=== PATIENT | male | born 1965 | race African-American/Black ===

== ENCOUNTER 2024-02-19 10:25 | Emergency (ER) | payer OTHER ==
[~2024-02-19] VITALS: Wt 99.8 kg
[2024-02-19 10:49] LABS: BASO % 0.4 % (0.0-1.0); EOS # 0.1 10*3/uL (0.0-0.4); EOS % 1.8 % (1.0-4.0); HEMATOCRIT 40.3 % (42.0-52.0); LYMPH # 0.8 10*3/uL (1.3-4.4); LYMPH % 14.9 % (27.0-41.0); MEAN CELL VOLUME 96.4 fl (80.0-94.0); MEAN CORPUSCULAR HGB 30.4 pg (27.0-31.0); MEAN CORPUSCULAR HGB CONC 31.5 g/dl (33.0-37.0); MEAN PLATELET VOLUME 9.4 fl (9.6-12.3); MONO # 0.5 10*3/uL (0.1-1.0); MONO % 9.1 % (3.0-9.0); NEUT % 73.4 % (47.0-73.0); PLATELET COUNT AUTOMATED 335 10*3/uL (130-400); RED BLOOD COUNT 4.18 10*6/uL (4.50-5.90); RED CELL DISTRI WIDTH 13.7 % (0-14.5); WHITE BLOOD COUNT 5.5 10*3/uL (4.8-10.8)
[2024-02-19] MEDS ORDERED: NORVASC5 MG PO (11:03)
[2024-02-19] MEDS ORDERED: VAZALORE81 MG PO (11:03)
[2024-02-19 11:04] LABS: ACT PARTIAL THROMBO TIME 25.4 SECONDS (20.0-32.1)
[2024-02-19] MEDS ORDERED: LIPITOR80 MG PO (11:04)
[2024-02-19] MEDS ORDERED: BISACODYL10 MG RC (11:04)
[2024-02-19] MEDS ORDERED: LODOCO0.5 MG PO (11:05)
[2024-02-19] MEDS ORDERED: BUMETANIDE1 MG PO (11:05)
[2024-02-19] MEDS ORDERED: COREG12.5 M1 PO (11:05)
[2024-02-19] MEDS ORDERED: NATURE'S BLEND F1 MG PO (11:07)
[2024-02-19] MEDS ORDERED: FLUTICASONE-SA1 EAC3 INH (11:07)
[2024-02-19] MEDS ORDERED: HYDRALAZINE HYD50 MG PO (11:08)
[2024-02-19] MEDS ORDERED: ISOSORBIDE MONO20 MG PO (11:08)
[2024-02-19] MEDS ORDERED: JARDIANCE10 MG PO (11:09)
[2024-02-19 11:10] LABS: ALKALINE PHOSPHATASE 81 U/L (46-116); BUN 24 mg/dl (9-23); CHLORIDE 104 mmol/L (98-107); POTASSIUM 4.4 mmol/L (3.4-5.1); SGPT/ALT 18 U/L (5-49); TOTAL PROTEIN 7.4 gm/dL (6.0-8.0)
[2024-02-19] MEDS ORDERED: MILK OF MA400 MG/53 PO (11:10)
[2024-02-19] MEDS ORDERED: PLAVIX75 M1 PO (11:10)
[2024-02-19] MEDS ORDERED: DAILY VALUE1 EACH PO (11:10)
[2024-02-19] MEDS ORDERED: PROTONIX40 MG PO (11:11)
[2024-02-19] MEDS ORDERED: CAROSPIR25 MG/5 ML PO (11:11)
[2024-02-19] MEDS ORDERED: NATURE'S BLEND100 M2 PO (11:12)
[2024-02-19] MEDS ORDERED: VALSARTAN80 MG PO (11:13)
[2024-02-19] MEDS ORDERED: TYLENOL325 M3 PO (11:13)
[2024-02-19] MEDS ORDERED: MORPHINE Sulfate 2 MG/ML SYR IV ONE (12:20)
[2024-02-19] MEDS ORDERED: ASPIRIN ENTERIC COATED 81 MG TAB PO ONE (12:20)
== END 2024-02-19 15:46 | disposition home or self-care (01) ==
LOC: ED 10:25
PROVIDERS: Internal Medicine
DX: I31.9 Disease of pericardium, unspecified (principal); E11.9 Type 2 diabetes mellitus without complications; J44.9 Chronic obstructive pulmonary disease, unspecified; Z86.73 Personal history of transient ischemic attack (TIA), and cerebral infarction without residual deficits; F41.9 Anxiety disorder, unspecified; Z88.2 Allergy status to sulfonamides; Z88.8 Allergy status to other drugs, medicaments and biological substances

== ENCOUNTER 2024-03-10 19:04 | Emergency (ER) | payer OTHER ==
[~2024-03-10] VITALS: Ht 167.6 cm; Wt 99.4 kg
[~2024-03-10 19:04] MED LIST: BISACODYL10 MG RC; BUMETANIDE1 MG PO; CAROSPIR25 MG/5 ML PO; COREG12.5 M1 PO; DAILY VALUE1 EACH PO; FLUTICASONE-SA1 EAC3 INH; HYDRALAZINE HYD50 MG PO; IMDUR SA30 MG PO; INVEGA3 MG PO; ISOSORBIDE MONO20 MG PO; JARDIANCE10 MG PO; LIPITOR80 MG PO; LODOCO0.5 MG PO; MILK OF MA400 MG/53 PO; NAMENDA-5 PO; NATURE'S BLEND F1 MG PO; NATURE'S BLEND100 M2 PO; NORVASC5 MG PO; PLAVIX75 M1 PO; PROTONIX40 MG PO; RIVASTIGMINE1 EACH T; TYLENOL325 M3 PO; VALSARTAN80 MG PO; VAZALORE81 MG PO
[2024-03-10] MEDS ORDERED: LORazepam 1 MG TAB PO ONE (19:40)
[2024-03-10 19:47] LABS: BASO % 0.2 % (0.0-1.0); EOS % 0.8 % (1.0-4.0); HEMATOCRIT 36.2 % (42.0-52.0); LYMPH # 0.8 10*3/uL (1.3-4.4); LYMPH % 14.8 % (27.0-41.0); MEAN CELL VOLUME 96.3 fl (80.0-94.0); MEAN CORPUSCULAR HGB 30.6 pg (27.0-31.0); MEAN CORPUSCULAR HGB CONC 31.8 g/dl (33.0-37.0); MONO # 0.6 10*3/uL (0.1-1.0); MONO % 10.9 % (3.0-9.0); NEUT # 3.7 10*3/uL (2.3-7.9); NEUT % 72.9 % (47.0-73.0); PLATELET COUNT AUTOMATED 266 10*3/uL (130-400); RED BLOOD COUNT 3.76 10*6/uL (4.50-5.90); RED CELL DISTRI WIDTH 13.2 % (0-14.5); WHITE BLOOD COUNT 5.1 10*3/uL (4.8-10.8)
[2024-03-10 20:02] LABS: POTASSIUM 3.9 mmol/L (3.4-5.1)
[2024-03-10 20:06] LABS: BILIRUBIN Negative (Negative); BLOOD Negative (Negative); CLARITY Clear (Clear); COLOR Yellow (Yellow); GLUCOSE 3+ (Negative); KETONE Trace (Negative); LEUKO ESTERASE Negative (Negative); NITRITE Negative (Negative); PH 5.5 (4.5-8.0); SPECIFIC GRAVITY >= 1.030 (1.001-1.030); UROBILINOGEN 0.2 E.U./dl (0.0-1.0)
[2024-03-10] MEDS ORDERED: FLEET MINERAL133 ML PO (20:10)
[2024-03-10] MEDS ORDERED: COZAAR50 M1 PO ×2 (20:12→20:13)
[2024-03-10 20:25] LABS: MUCOUS 1+
== END 2024-03-10 22:39 | disposition home or self-care (01) ==
LOC: ED 19:04
PROVIDERS: Internal Medicine
DX: F25.9 Schizoaffective disorder, unspecified (principal); D53.9 Nutritional anemia, unspecified; N17.9 Acute kidney failure, unspecified; E11.22 Type 2 diabetes mellitus with diabetic chronic kidney disease; I12.9 Hypertensive chronic kidney disease with stage 1 through stage 4 chronic kidney disease, or unspecified chronic kidney disease; N18.9 Chronic kidney disease, unspecified; J44.9 Chronic obstructive pulmonary disease, unspecified; Z88.2 Allergy status to sulfonamides; Z88.8 Allergy status to other drugs, medicaments and biological substances; Z95.5 Presence of coronary angioplasty implant and graft; Z98.890 Other specified postprocedural states

== ENCOUNTER 2024-03-11 19:58 | Emergency (ER) | payer OTHER ==
[~2024-03-11] VITALS: Ht 170.1 cm; Wt 95.7 kg
[~2024-03-11 19:58] MED LIST changes: +COZAAR50 M1 PO; +FLEET MINERAL133 ML PO
[2024-03-11 20:25] LABS: BASO % 0.4 % (0.0-1.0); EOS # 0.1 10*3/uL (0.0-0.4); EOS % 1.7 % (1.0-4.0); HEMATOCRIT 37.5 % (42.0-52.0); LYMPH % 19.1 % (27.0-41.0); MEAN CELL VOLUME 95.4 fl (80.0-94.0); MEAN CORPUSCULAR HGB 30.3 pg (27.0-31.0); MEAN CORPUSCULAR HGB CONC 31.7 g/dl (33.0-37.0); MEAN PLATELET VOLUME 9.1 fl (9.6-12.3); MONO # 0.8 10*3/uL (0.1-1.0); MONO % 14.5 % (3.0-9.0); NEUT # 3.4 10*3/uL (2.3-7.9); NEUT % 64.1 % (47.0-73.0); PLATELET COUNT AUTOMATED 251 10*3/uL (130-400); RED BLOOD COUNT 3.93 10*6/uL (4.50-5.90); RED CELL DISTRI WIDTH 13.2 % (0-14.5); WHITE BLOOD COUNT 5.2 10*3/uL (4.8-10.8)
[2024-03-11 20:47] LABS: POTASSIUM 4.4 mmol/L (3.4-5.1); TOTAL PROTEIN 6.8 gm/dL (6.0-8.0)
[2024-03-11] MEDS ORDERED: ACETAMINOPHEN 325 MG TAB PO ONE (21:20)
== END 2024-03-12 01:38 ==
LOC: ED 19:58
PROVIDERS: Internal Medicine
DX: R07.89 Other chest pain (principal); D53.9 Nutritional anemia, unspecified; F25.9 Schizoaffective disorder, unspecified; J44.9 Chronic obstructive pulmonary disease, unspecified; F41.9 Anxiety disorder, unspecified; Z86.73 Personal history of transient ischemic attack (TIA), and cerebral infarction without residual deficits; E11.22 Type 2 diabetes mellitus with diabetic chronic kidney disease; N18.9 Chronic kidney disease, unspecified; N17.9 Acute kidney failure, unspecified; Z88.2 Allergy status to sulfonamides; Z88.8 Allergy status to other drugs, medicaments and biological substances; Z95.5 Presence of coronary angioplasty implant and graft; Z98.890 Other specified postprocedural states